=== PATIENT | female | born 1955 | race Two or more races ===

== ENCOUNTER 2017-04-15 12:08 | Emergency (ER) | payer SELFPAY ==
[~2017-04-15] VITALS: Ht 160 cm; Wt 60.3 kg
[2017-04-15] MEDS ORDERED: LISINOPRIL5 MG ORAL (12:15)
[2017-04-15] MEDS ORDERED: Norco 5mg/325mg tab ORAL ONE (13:15)
[2017-04-15] MEDS ORDERED: NORCO 5-325 TA1 EAC1 ORAL (13:36)
[2017-04-15] MEDS ORDERED: IBUPROFEN600 MG ORAL (13:36)
[2017-04-15 13:53] VITALS: BP 125/84
[2017-04-15 13:56] VITALS: BP 125/84
--- NOTE | 2017-04-15 14:45 | Diagnostic Imaging Report ---
Indication: Pain right ankle Comparison: None Findings: 3 views of the right ankle obtained. Acute trimalleolar fracture of the right ankle demonstrated with fractures of the medial, lateral and posterior malleoli. The medial malleolus fracture is transverse. The lateral and posterior fractures are oblique. Soft tissue swelling noted. Impression: Acute trimalleolar fracture
--- NOTE | 2017-04-15 21:59 | Emergency Room Report ---
History of Present Illness General Chief Complaint: Pain Source: Patient Present Illness HPI The patient is a [id number] female presenting for right ankle pain. She states that she slipped on water and felt the right ankle buckled underneath her. This occurred just prior to arrival. Pain is a 10 out of 10 dull ache and does not radiate. She states that she is unable to bear any weight on the ankle. She denies any numbness or tingling. She denies previous injury to the ankle. Allergies: Coded Allergies: No Known Allergies (Unverified , 04/15/17) Patient History Past Medical History: see triage record Pertinent Family History: none Last Menstrual Period: N/A Reviewed Nursing Documentation: PMH: Agreed, PSxH: Agreed Nursing Documentation-PMH Past Medical History: No Stated History Review of Systems All Other Systems: negative except mentioned in HPI Physical Exam Vital Signs Date Time Temp Pulse Resp B/P (MAP) Pulse Ox O2 Delivery O2 Flow Rate FiO2 04/15/17 12:16 107 19 125/84 97 Room Air 04/15/17 13:53 98.0 Sp02 EP Interpretation: reviewed, normal General Appearance: no apparent distress, alert, GCS 15, non-toxic Head: normocephalic, atraumatic Eyes: bilateral eye normal inspection, bilateral eye PERRL ENT: hearing grossly normal, normal pharynx, no angioedema, normal voice Musculoskeletal: decreased range of motion - R ankle, swelling - R ankle, tender - TTP diffusely over the R ankle Neurologic: alert, oriented x3, responsive, motor strength/tone normal, sensory intact, speech normal Psychiatric: judgement/insight normal, memory normal, mood/affect normal, no suicidal/homicidal ideation Skin: normal color, no rash, warm/dry, well hydrated Procedures Splinting Splinting : Consent: Verbal Location: R leg Hand-Made Type: plaster Splint: poserior short - with sugar tong Pre-Proc Neuro Vasc Exam: normal Post-Proc Neuro Vasc Exam: normal Patient Tolerated: Well Complications: None Medical Decision Making PA Attestation Dr. Sher is my supervising physician. Patient management was discussed with my supervising physician Diagnostic Impression: Primary Impression: Ankle fracture, right Qualified Codes: S82.891A - Other fracture of right lower leg, initial encounter for closed fracture ER Course The patient is a [id number] female presenting for right ankle pain. Ddx considered include but not limited to sprain/strain, fracture, contusion Physical exam: There is diffuse tenderness to palpation over the right ankle as well as swelling. No active range of motion due to pain. DP pulse 2+ X-ray of the right ankle reveals a trimalleolar fracture R leg splint placed and pt is provided crutches. She will FU with Orthopedics. ER precautions given Other X-Ray Diagnostic Results Other X-Ray Diagnostic Results : X-Ray ordered: R ankle # of Views/Limited Vs Complete: 3 View Indication: Pain EP Interpretation: Yes Interpretation: no dislocation, other - + fracture Impression: Other - Tri mal fracture Electronically Signed by: Vitor Sher MD PA Scribe Text I am acting as scribe for my supervising physician. My supervising physician's interpretation of the R ankle xray shows tri malleolar fracture Last Vital Signs Date Time Temp Pulse Resp B/P (MAP) Pulse Ox O2 Delivery O2 Flow Rate FiO2 04/15/17 13:56 98.0 86 19 125/84 97 Room Air Status: improved Disposition: HOME, SELF-CARE Condition: Improved Scripts Hydrocodone Bit/Acetaminophen 5-325* (NORCO 5-325 TABLET*) 1 Each Tablet 1 TAB ORAL Q6HR Y for For Pain, #10 TAB Prov: CHRISTAL LYNN P.A. 04/15/17 Ibuprofen* (MOTRIN*) 600 Mg Tablet 600 MG ORAL Q8H Y for For Pain, #30 TAB 0 Refills Prov: CHRISTAL LYNN P.A. 04/15/17 Referrals: NOT CHOSEN IPA/,REFERRING (PCP) Patient Instructions: Ankle Fracture Additional Instructions: I discussed my findings with the patient. All questions and concerns have been answered. Treatment and medication compliance have been addressed. I advised the patient that they need to follow up with primary doctor within 3 days and obtain orthopedic referral. Return to ED if pain remains or worsens, numbness or tingling occurs, new rash is noticed, fever is noticed, or if needed for any reason. Patient verbalized understanding of discharge instructions. CHRISTAL LYNN Apr 15, 2017 21:59
== END 2017-04-15 14:00 | disposition home or self-care (01) ==
LOC: EMR 13:01
DX: S82.891A Other fracture of right lower leg, initial encounter for closed fracture (principal); W01.0XXA Fall on same level from slipping, tripping and stumbling without subsequent striking against object, initial encounter; Y92.9 Unspecified place or not applicable
CPT/HCPCS: 29505; 99284